=== PATIENT | female | born 1950 | race Caucasian/White ===

== ENCOUNTER 2017-04-21 02:29 | Inpatient (IN) | payer OTHER ==
[~2017-04-21] VITALS: Ht 167.6 cm; Wt 83.9 kg
[2017-04-21] MEDS ORDERED: CRESTOR10 M1 PO (07:14)
[2017-04-21] MEDS ORDERED: TYLENOL EXTRA500 M2 PO (07:15)
--- NOTE | 2017-04-21 10:23 | Patient Discharge Instructions ---
Discharge Instructions General Discharge Information You were seen/treated for: Primary osteoarthritis, left hip You had these procedures: Left total hip replacement Watch for these problems: Increasing pain despite the use of pain medication Increasing redness, warmth or swelling Drainage of any type from incision Inability to bear weight on operative leg Persistent nausea and vomiting Fever greater than 101.5 degrees Do not soak the wound: Yes No bath, but you may shower: Yes Other wound care: Please keep wound clean and dry. No ointments or lotions of any type on or near incision. Your dressing will be changed by your nurse on the second day after your surgery. Daily dry dressing changes are recommended each day thereafter. Do not soak your wound- no tub baths/swimming. You may shower 48hr after surgery. Special Instructions: Aspirin: You are taking this medication to help prevent blood clot formation. Please take with food to protect your stomach lining. Please take as directed. Constipation: Pain medication can cause constipation. It is recommended that you take Colace and Miralax each day. Discontinue this medication if you develop loose stool or diarrhea. If you wish to continue this medication, it is available over the counter. If you are unable to move your bowels or unable to pass gas and are developing bloating, nausea, or vomiting as a result, please contact your doctor. Diet Continue normal diet: Yes Activity Full Activity/No Limits: No Activity Limited to: Weight bear as tolerated Other activity limits: Use rolling walker as needed Acute Coronary Syndrome Inclusion Criteria At DC or during hospital stay patient has or had the following: ACS DIAGNOSIS No Discharge Core Measures Meds if any: Prescribed or Continued at Discharge Meds if any: NOT Prescribed or Continued at Discharge Congestive Heart Failure Inclusion Criteria At DC or during hospital stay patient has or had the following: CHF DIAGNOSIS No Discharge Core Measures Meds if any: Prescribed or Continued at Discharge Meds if any: NOT Prescribed or Continued at Discharge Cerebrovascular accident Inclusion Criteria At DC or during hospital stay patient has or had the following: CVA/TIA Diagnosis No Discharge Core Measures Meds if any: Prescribed or Continued at Discharge Meds if any: NOT Prescribed or Continued at Discharge Venous thromboembolism Inclusion Criteria VTE Diagnosis No VTE Type NONE VTE Confirmed by (Test) NONE Discharge Core Measures - Per Current guidelines, there needs to be overlap - treatment for the first 5 days of Warfarin therapy. - If discharged on Warfarin prior to 5 days of - overlap therapy, the patient will need to be - assessed for post discharge needs including - *Post discharge parental anticoagulation - *Warfarin and/or parental anticoagulation education - *Follow up date to check INR post discharge At least 5 days overlap therapy as Inpatient No Meds if any: Prescribed or Continued at Discharge Note: Overlap Therapy is Warfarin and Anticoagulant Meds if any: NOT Prescribed or Continued at Discharge
--- NOTE | 2017-04-21 10:26 | Surg Short-stay <48hrs Dis Sum ---
Visit Information Visit Dates Admission Date: 04/21/17 Discharge Date: 04/22/17 Surgical Short Stay DC Summary Admission Diagnosis: Primary osteoarthritis, left hip Final Diagnosis: Primary osteoarthritis, left hip s/p L THR Procedure(s): Left total hip replacement Summary/Significant Findings: Patient was admitted to the hospital for an elective left total hip replacement. Procedure was tolerated well and patient was transferred to a general surgical floor. Diet was advanced and tolerated. Physical therapy performed evaluation and treatment. At time of hospital discharge, vital signs were stable, neurovascular status was intact, and pain was controlled with the use of oral pain medications. Condition at Discharge: Stable Discharge Disposition: home health services Discharge instructions provided to patient/family: Yes Post discharge follow-up plan: Follow up with Dr. Sinclair in 6 weeks for postop check
--- NOTE | 2017-04-21 10:27 | Admission Core Measures ---
Acute Coronary Syndrome (CM) ACS Core Measures Acute Coronary Syndrome Diagnosis No Congestive Heart Failure (NEW) CHF Core Measures Congestive Heart Failure Diagnosis No Cerebrovascular Accident (NEW) CVA Core Measures CVA/TIA Diagnosis No Venous Thromboembolism VTE Core Daksha (View Protocol) VTE Risk Factors Surgery No Mechanical VTE Prophylaxis d/t N/A MechProphylax Ordered No VTE Pharm Prophylaxis d/t NA PharmProphylax ordered Problem List As ranked by this Provider includes Assessment & Plan 1. Unilateral primary osteoarthritis, left hip HOME MEDS Home Med List Acetaminophen (Tylenol Extra Strength) 500 MG TABLET 2 TAB PO Q6 pain ( Reported) Rosuvastatin Calcium (Crestor) 10 MG TABLET 1 TAB PO DAILY chol (Reported)
[2017-04-21] MEDS ORDERED: MIRALAX17 G1 PO (10:42)
[2017-04-21] MEDS ORDERED: OMEPRAZOLE20 M2 PO (10:42)
[2017-04-21] MEDS ORDERED: DILAUDID2 M1 PO (10:42)
[2017-04-21] MEDS ORDERED: ASPIRIN325 M2 PO (10:42)
[2017-04-21] MEDS ORDERED: COLACE100 M1 PO (10:42)
--- NOTE | 2017-04-21 11:23 | RADIOLOGY REPORT ---
EXAMINATION: XR HIP, LEFT CLINICAL INFORMATION: There is a 67-year-old female with history of left hip surgery. COMPARISON: None TECHNIQUE: Two views of the left hip. FINDINGS: The patient is status post bipolar left hip prosthesis. Within the 2 views present the metallic hip appears to be anatomic. There is air within the soft tissues consistent with recent surgery. IMPRESSION: 1. The patient is status post left hip replacement.
[2017-04-21 14:30] VITALS: BP 110/70
--- NOTE | 2017-04-21 15:10 | Operative Report ---
Operative/Inv Procedure Report Surgery Date: 04/21/17 Name of Procedure: Left total hip replacement Pre-Operative Diagnosis: Primary left hip DJD Post-Operative Diagnosis: Same Estimated Blood Loss: 250 Surgeon/Clinical Nursing Professor: Yahir BARRERA,Nico Hahn Anesthesia: block Operative/Procedure Note Note: Description of Procedure: The patient was taken to the operating room and positively identified. After induction of spinal anesthesia and administration of appropriate pre-operative antibiotics, the patient was positioned supine on the operating room table and all bony prominences were well padded. After performing a surgical timeout, the left lower extremity was prepped and draped in the usual sterile fashion. A direct anterior approach was made to the left hip. The incision was carried sharply through superficial soft tissues to the level of the fascia. Meticulous hemostasis was maintained with Bovie electocautery. The fascia over the tensor fascia julia muscle was opened sharply and the interval between the TFL and the sartorius was entered bluntly taking care to stay lateral to the lateral femoral cutaneous nerve. Retractors were placed around the femoral neck and the pericapsular fat was identified. The ascending branches of the lateral femoral circumflex vessels were identified and carefully coagulated. The pericapsular fat and anterior capsule were then resected. A napkin ring osteotomy was performed and the femoral head was removed without difficulty. Attention was then turned to the acetabulum. After appropriate placement of retractors, the acetabulum was exposed. Soft tissue was cleaned from the acetabular margin and notch. Overhanging osteophytes were removed and the teardrop was exposed. The acetabulum was then sequentially reamed to accept a 54 mm Pierre Tritanium hemispherical solid shell. This was impacted into place in the appropriate position and fitted with a 36 mm Trident X3 zero degree polyethylene insert. Attention was then turned to the femur. After performing the appropriate ligament releases, the proximal femur was exposed. It was then sequentially broached to accept a size 2 Sherie Accolade II stem. This was trialed for leg length and stability. The trial component was removed and the final component was impacted into place. The trunnion was carefully cleaned and fit with a 36 mm, +5 Biolox delta ceramic femoral head. The hip was reduced and put through a full range of motion and found to be stable. The articular space was then irrigated with sterile saline. The periarticular soft tissues were infilitrated with Marcaine. The fascial layer was closed with interrupted #1 vicryl suture and the skin was re-approximated with interrupted 2 -0 vicryl. The skin was closed with a running 3-0 V-Lock suture. Steri-strips and a sterile dressing were applied. The patient was awakened and taken to the recovery room in satisfactory condition.
--- NOTE | 2017-04-21 15:33 | PN- Orthopedic ---
Subjective Subjective: Patient reports postoperative pain and reports she can not get comfortable in the chair. She reports ambulating with PT. She states she is thirsty and hungry. She denies any numbness or tingling. She anticipates going home tomorrow. She denies any chest pain, difficutly breathing or shortness of breath. Objective Vital Signs and I&Os Intake & Output 04/21 1600 04/21 0800 04/21 0000 04/20 1600 04/20 0800 04/20 0000 Intake Total Output Total Balance Patient 185 lb Weight Physical Exam: Vitals - temp 98F, pulse 70, bp 110/70, O2 sat 95% on RA Gen - resting uncomfortably sitting upright in bed in NAD Cardiac - S1S2 noted, RRR Lungs - CTAB Ext - left dressing c/d/i, mild swelling, no erythema or drainage noted, moves all extremities, sesnation intact, decreased left lower extremity motor function due to pain, alps in place, no edema or calf tendeness B/L Current Medications: Current Medications Sig/Maria Luz Start time Last Medication Dose Route Stop Time Status Admin Acetaminophen 650 MG Q4P PRN 04/21 1430 AC PO Acetaminophen 0 .STK-MED ONE 04/21 0734 DC PO Acetaminophen 975 MG ONCE 04/21 0000 DC PO 04/21 2359 Aspirin 325 MG BID 04/21 2200 AC PO Atorvastatin Calcium 40 MG 1700 04/21 1700 AC PO Cefazolin Sodium 2 GM IQ8 04/21 1600 AC N/A 1 UNIT IV 04/22 1559 Cefazolin Sodium 2,000 MG ONCE 04/21 0000 DC IV 04/21 2359 Dextrose/Sodium 1,000 ML .Q8H 04/21 1430 AC Chloride IV Docusate Sodium 100 MG BID 04/21 2200 AC PO Hydromorphone HCl 2 MG Q4P PRN 04/21 1430 AC PO Hydromorphone HCl 4 MG Q4P PRN 04/21 1430 AC PO Ketorolac 15 MG Q6P PRN 04/21 1045 AC Tromethamine IV Morphine Sulfate 2 MG Q2P PRN 04/21 1430 AC IV Omeprazole 20 MG DAILY AC 04/22 0700 AC PO Ondansetron HCl 4 MG Q6P PRN 04/21 1430 AC IV Oxycodone HCl 0 .STK-MED ONE 04/21 0733 DC PO Oxycodone HCl 10 MG ONCE 04/21 0000 DC PO 04/21 2359 Polyethylene Glycol 17 GM DAILY 04/22 1000 AC PO Promethazine HCl 12.5 MG Q6P PRN 04/21 1430 AC IV 04/28 1044 Results Recent Imaging Studies: SERVICE DATE: 04/21/17-1045 EXAM TYPE: RAD - XRY-HIP 2-3 VIEWS, LEFT EXAMINATION: XR HIP, LEFT CLINICAL INFORMATION: There is a 67-year-old female with history of left hip surgery. COMPARISON: None TECHNIQUE: Two views of the left hip. FINDINGS: The patient is status post bipolar left hip prosthesis. Within the 2 views present the metallic hip appears to be anatomic. There is air within the soft tissues consistent with recent surgery. IMPRESSION: 1. The patient is status post left hip replacement. Assessment/Plan Assessment/Plan 67 F POD 0 s/p L THR due to DJD of left hip with expected postoperative pain Advance to cardiac diet Cont IVF Cont abx - ancef x2 Cont pain regimen Home med on board GI ppx on board DVT ppx - asa 325 bid starting tonight Cont teds/alps Encourage IS Anticipate d/c home with hhs tomorrow Core Measures Venous Thromboembolism VTE Risk Factors Surgery No Mechanical VTE Prophylaxis d/t N/A MechProphylax Ordered No VTE Pharm Prophylaxis d/t NA PharmProphylax ordered
[2017-04-21 21:15] VITALS: BP 100/60
[2017-04-22 03:02] VITALS: BP 118/60
[2017-04-22 05:55] VITALS: BP 122/78
--- NOTE | 2017-04-22 07:39 | PN- Orthopedic ---
Subjective Subjective: Awake, alert No complaints overnight Pain is tolerable with meds Ambulated with PT yesterday - was not deemed stable for discharge at that time Objective Vital Signs and I&Os Vital Signs Date Time Temp Pulse Resp B/P B/P Pulse O2 O2 Flow FiO2 Mean Ox Delivery Rate 04/22 0555 98.7 77 20 122/78 93 Room Air 04/22 0302 98.8 78 20 118/60 94 Room Air 04/21 2115 99.4 69 20 100/60 94 Room Air 04/21 1430 98.2 70 20 110/70 95 Room Air Intake & Output 04/22 0800 04/22 0000 04/21 1600 04/21 0800 04/21 0000 04/20 1600 Intake Total 1080 490 Output Total 800 Balance 280 490 Intake, IV 600 250 Intake, Oral 480 240 Output, Urine 800 Patient 185 lb 185 lb Weight Weight Reported by Patient Measurement Method Physical Exam: VSS, afebrile General: alert and oriented times three Chest: clear anteriorly bilaterally, RRR Abd: soft, good bs Ext: warm, no edema, no calf tenderness, FROM Wd: dressed, dry, ice pack in place Current Medications: Current Medications Sig/Maria Luz Start time Last Medication Dose Route Stop Time Status Admin Acetaminophen 650 MG Q4P PRN 04/21 1430 AC PO Acetaminophen 975 MG ONCE 04/21 0000 DC PO 04/21 2359 Aspirin 325 MG BID 04/21 2200 AC 04/21 PO 2022 Atorvastatin Calcium 40 MG 1700 04/21 1700 AC 04/21 PO 1741 Cefazolin Sodium 2 GM IQ8 04/21 1600 AC 04/22 N/A 1 UNIT IV 04/22 1559 0737 Cefazolin Sodium 2,000 MG ONCE 04/21 0000 DC IV 04/21 2359 Dextrose/Sodium 1,000 ML .[id number] 04/21 1430 AC 04/21 Chloride IV 2111 Docusate Sodium 100 MG BID 04/21 2200 AC 04/21 PO 2022 Fentanyl Citrate 100 MCG .STK-MED ONE 04/21 0800 DC IM 04/21 0801 Hydromorphone HCl 2 MG Q4P PRN 04/21 1430 AC 04/22 PO 0100 Hydromorphone HCl 4 MG Q4P PRN 04/21 1430 AC 04/21 PO 1535 Ketorolac 15 MG Q6P PRN 04/21 1045 AC 04/22 Tromethamine IV 0738 Midazolam HCl 2 MG .STK-MED ONE 04/21 0800 DC IM 04/21 0801 Morphine Sulfate 2 MG Q2P PRN 04/21 1430 AC IV Omeprazole 20 MG DAILY AC 04/22 0700 AC 04/22 PO 0541 Ondansetron HCl 4 MG Q6P PRN 04/21 1430 AC IV Oxycodone HCl 10 MG ONCE 04/21 0000 DC PO 04/21 2359 Polyethylene Glycol 17 GM DAILY 04/22 1000 AC PO Promethazine HCl 12.5 MG Q6P PRN 04/21 1430 AC IV 04/28 1044 Tranexamic Acid 2,000 MG .STK-MED ONE 04/21 0800 DC IV 04/21 0801 Assessment/Plan Assessment/Plan 67yo female s/p L THR pod 1 pain management asa 325mg po bid for dvt ppx ALPS PT - wbat follow up dc plan/clearance after PT Core Measures Venous Thromboembolism VTE Risk Factors Surgery No Mechanical VTE Prophylaxis d/t N/A MechProphylax Ordered No VTE Pharm Prophylaxis d/t NA PharmProphylax ordered
[2017-04-22 09:24] LABS: ABSOLUTE BASOPHIL COUNT 0 /CUMM (0.0-0.2); ABSOLUTE EOSINOPHIL COUNT 0.1 /CUMM (0.0-0.7); ABSOLUTE GRANULOCYTE CT 6.5 /CUMM (1.4-6.5); ABSOLUTE LYMPH COUNT 1.2 /CUMM (1.2-3.4); ABSOLUTE MONOCYTE COUNT 0.5 /CUMM (0.10-0.60); BASOPHIL % 0.3 % (0.0-2.0); EOSINOPHIL % 1.3 % (0-5); HEMATOCRIT 33.9 % (37-47); MEAN CORPUSCULAR HGB 28.9 PG (27.0-31.0); MEAN CORPUSCULAR VOLUME 87.6 FL (81.0-99.0); MEAN PLATELET VOLUME 8.4 FL (7.4-10.4); PLATELET COUNT 197 /CUMM (130-400); RBC DISTRIBUTION WIDTH 13.6 % (11.5-14.5); RED BLOOD CELL CT 3.87 /CUMM (4.20-5.40); WHITE BLOOD CELL COUNT 8.4 /CUMM (4.8-10.8)
[2017-04-22 11:21] VITALS: BP 118/74
== END 2017-04-22 14:42 | disposition home health service (06) | DRG 470 ==
LOC: SDA 02:29 → ENRESERV 12:49 → ENTRNSPT 13:48 → EDTRNSPT 13:57 → EDTRNSPTSTS 13:57 → 2NB 14:07 → CMPTRNSPT 14:35 → ENPENDDIS 04-22 10:55 → ENTRNSPT 04-22 14:01 → EDTRNSPTSTS 04-22 14:38 → 2NB 04-22 14:42 → CMPTRNSPT 04-22 14:46
PROVIDERS: Physician Assistant Surgical
PROC: 0SRB04A Replacement of Left Hip Joint with Ceramic on Polyethylene Synthetic Substitute, Uncemented, Open Approach (ICD-10-PCS; principal; 2017-04-21)
DX: M16.12 Unilateral primary osteoarthritis, left hip (principal); M25.752 Osteophyte, left hip
CPT/HCPCS: 2NBP; 73502-LT; 82436; 97110-GO; 97116-GO; 97161-GP; 97530-GO; J0690; J0735; J1885; J2405; J2550; J3490; J7042